=== PATIENT | female | born 1965 | race Caucasian/White ===

== ENCOUNTER 2017-01-14 14:42 | Emergency (ER) | payer MEDICARE, OTHER | END 2017-01-14 21:31 | disposition home or self-care (01) | LOC: ER 14:42 | DX: K59.00 Constipation, unspecified (principal); N39.0 Urinary tract infection, site not specified; G80.9 Cerebral palsy, unspecified; Z90.49 Acquired absence of other specified parts of digestive tract; Z79.899 Other long term (current) drug therapy; Z88.1 Allergy status to other antibiotic agents; Z88.0 Allergy status to penicillin | CPT/HCPCS: 36415; 96361; 96365; 96375; 96376; J0696; Q9967 ==